=== PATIENT | female | born 1995 | race Caucasian/White ===

== ENCOUNTER 2019-10-24 20:44 | Emergency (ER) | payer OTHER ==
[~2019-10-24] VITALS: Ht 165.1 cm; Wt 93.9 kg
[2019-10-24 21:55] VITALS: Ht 165.1 cm; Wt 93.9 kg
[2019-10-25 00:43] VITALS: BP 124/82
== END 2019-10-25 00:44 | disposition home or self-care (01) ==
LOC: ED 20:44
DX: S30.1XXA Contusion of abdominal wall, initial encounter (principal); W54.0XXA Bitten by dog, initial encounter; Y93.89 Activity, other specified; Y92.89 Other specified places as the place of occurrence of the external cause; Y99.8 Other external cause status
CPT/HCPCS: 90715